=== PATIENT | female | born 1990 | race Caucasian/White ===

== ENCOUNTER → 2017-10-21 | Outpatient (CLI) | payer OTHER ==
[~2017-10-21] MED LIST: SOLIA 0.15 MG-01 TAB PO
== END ==
LOC: SUN.DIA 13:43
DX: E11.9 Type 2 diabetes mellitus without complications (principal)
CPT/HCPCS: G0108

== ENCOUNTER 2017-11-02 22:12 | Inpatient (IN) | payer OTHER ==
[~2017-11-02] VITALS: Ht 167.6 cm; Wt 111.8 kg
[2017-11-02 22:40] VITALS: TEMP 98.3
[2017-11-02 22:45] VITALS: TEMP 98.3
[2017-11-02 23:00] LABS: COLLECTION METHOD CLEAN CATCH
[2017-11-02 23:02] LABS: BASO % 0.2 % (0.0-2.0); EOS # 0.1 (0.0-0.7); EOS % 0.8 % (0-4.0); GRAN # 9.3 (1.4-6.5); GRAN % 70.3 % (42.2-75.2); HEMOGLOBIN 10.5 g/dl (12.5-16.0); LYMPH # 3.1 (1.2-3.4); LYMPH % 23.1 % (20.0-51.0); MEAN CELL VOLUME 87 fl (80.0-100.0); MEAN CORPUSCULAR HEMOGLOBIN 29 pg (27.0-31.0); MEAN CORPUSCULAR HGB CONC 33 g/dl (33.0-37.0); MEAN PLATELET VOLUME 9.6 fl (7.4-10.4); MONO # 0.6 (0.1-0.6); MONO % 4.8 % (1.7-9.3); PLATELET COUNT 316 K/mm3 (130-400); REDCELL DISTRIBUTION WIDTH-CV 13.3 % (11.5-14.5)
[2017-11-02 23:04] LABS: HEMATOCRIT 31.4 % (37.0-47.0)
[2017-11-02] MEDS ORDERED: CONCEPT DHA1 CAP PO (23:05)
[2017-11-02] MEDS ORDERED: CALCIUM CARBON650 M2 (23:05)
[2017-11-02 23:06] LABS: PH 7 (5-8); SQUAMOUS EPITHELIAL 0-2 /hpf; URINE APPEARANCE Clear; URINE BACTERIA Rare /hpf; URINE BILIRUBIN Negative (NEGATIVE); URINE BLOOD 3+ (NEGATIVE); URINE COLOR Straw; URINE GLUCOSE Negative (NEGATIVE); URINE KETONE Negative (NEGATIVE); URINE LEUKOCYTE ESTERASE Negative (NEGATIVE); URINE NITRATE Negative (NEGATIVE); URINE PROTEIN(semi-quant) Negative (NEGATIVE); URINE UROBILINOGEN Negative (NEGATIVE); URINE WBC 0-2 /hpf
[2017-11-02] MEDS ORDERED: OMEGA-3 1000 MG1 CAP PO (23:06)
[2017-11-02] MEDS ORDERED: TYLENOL 500MG500 MG PO (23:07)
[2017-11-02 23:15] VITALS: BP 176/84; PULSE 80
[2017-11-02 23:15] LABS: TRICYCLIC ANTIDEPRESS URINE NEGATIVE
[2017-11-02] MEDS ORDERED: ZANTAC 7575 MG PO (23:15)
[2017-11-02 23:45] VITALS: BP 157/85; PULSE 78
[2017-11-03 00:12] VITALS: BP 155/91; PULSE 89; TEMP 98.2
== END 2017-11-03 00:20 | disposition short-term general hospital (02) | DRG 781 ==
LOC: LDRO 22:12 → LDR 23:24
PROVIDERS: Obstetrics & Gynecology
DX: O42.913 Preterm premature rupture of membranes, unspecified as to length of time between rupture and onset of labor, third trimester (principal); O24.410 Gestational diabetes mellitus in pregnancy, diet controlled; Z3A.33 33 weeks gestation of pregnancy; O99.213 Obesity complicating pregnancy, third trimester
CPT/HCPCS: J0702; J2540; J3475; J7120